=== PATIENT | male | born 1995 | race Caucasian/White ===

== ENCOUNTER 2017-04-04 06:08 | Emergency (ER) | payer SELFPAY ==
[~2017-04-04] VITALS: Ht 170.2 cm; Wt 65.0 kg
[2017-04-04 06:12] VITALS: BP 128/62; PULSE 53; RESP 16; TEMP 97.5; O2SAT 100
[2017-04-04] MEDS ORDERED: BACT400T PO (06:28)
--- NOTE | 2017-04-04 06:35 | PD ---
HPI . Skin lesions Chief Complaint: Skin Problem Time Seen by Provider: 06:23 Travel History International Travel<30 days: No Contact w/Intl Traveler<30days: No Traveled to known affect area: No History of Present Illness HPI Patient presents with about a week history of scattered skin lesions. He believes that the etiology of the lesions is a dirty work environment. 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 He reports that he was seen approximately 2 days ago and placed on Bactrim for the lesions. However, they are not getting any better. His main complaint is pain associated with the lesions. He reports a sharp, stabbing pain which is constant and worsening which is rated as 8/10. He has not been taking anything for the pain. He reports no exacerbating or relieving factors. He has not had any fever or any other systemic symptoms. PFSH Past Medical History ADHD: No Autoimmune Disease: No Anxiety: No Depression: No Cancer: No Cardiovascular Problems: No Developmental Delay: No Diabetes: No Diminished Hearing: No Gastrointestinal Disorders: No Glaucoma: No Genitourinary: No Hepatitis: No Hiatal Hernia: No Hypertension: No Musculoskeletal: No Neurologic: No Psychiatric: Yes (ODD) Respiratory: No Immunizations Current: Yes Migraines: No Seizures: No Thyroid Disease: No Ulcer: No Tetanus Vaccination: Unknown Influenza Vaccination: No Past Surgical History Pacemaker: No Other Surgery: Yes Social History Alcohol Use: No (OCCASSIONALLY) Tobacco Use: Yes (1PPD ) Substance Use: No Allergies-Medications (Allergen,Severity, Reaction): Coded Allergies: Animal Dander (Verified Allergy, Intermediate, 04/04/17) Uncoded Allergies: cats and dogs (Allergy, Severe, Sneezing, 07/19/13) Reported Meds & Prescriptions Reported Meds & Active Scripts Active Reported Bactrim (Sulfamethoxazole-Trimethoprim) 400-80 Mg Tab 1 Tab PO BID Review of Systems Except as stated in HPI: all other systems reviewed are Neg Musculoskeletal: Positive: Pain Skin: Positive Lesions Physical Exam Narrative GENERAL: Awake and alert and in no acute distress. SKIN: Warm and dry. He has a few scattered pustules, mainly on his legs. The worst is on his right posterior thigh. None of them are fluctuant. HEAD: Atraumatic. Normocephalic. EYES: Pupils equal and round. NECK: Trachea midline. CARDIOVASCULAR: Regular rate and rhythm. RESPIRATORY: No accessory muscle use. MUSCULOSKELETAL: No obvious deformities. No edema. NEUROLOGICAL: Awake and alert. No obvious cranial nerve deficits. Motor grossly within normal limits. Normal speech. PSYCHIATRIC: Appropriate mood and affect; insight and judgment normal. Data Data Last Documented VS Vital Signs Date Time Temp Pulse Resp B/P Pulse Ox O2 Delivery O2 Flow Rate FiO2 04/04/17 06:12 97.5 53 16 128/62 100 Room Air MDM Medical Decision Making Medical Screen Exam Complete: Yes Emergency Medical Condition: Yes Differential Diagnosis My differential diagnosis includes but is not limited to localized wound infection, cellulitis, abscess Narrative Course Patient presents complaining with scattered skin lesions which he states are painful. One lesion on his right posterior thigh looks like an early abscess. Other 3 or 4 lesions are just pustules. He has no systemic signs or symptoms. He has been on Bactrim for 2 days. I will add Keflex and Motrin. Diagnosis Primary Impression: Abscess Referrals: [facility] 3 days Patient Instructions: Abscess (ED), General Instructions Med/Other Pt SpecificInfo: Prescription(s) given Scripts Ibuprofen 800 Mg [id number] Mg PO Q8H PRN (Pain/Inflammation) #60 TAB Ref 0 Prov:Salome Renteria MD 04/04/17 Cephalexin (Keflex)500 Mg [id number] Mg PO Q8H #30 CAP Ref 0 Prov:Salome Renteria MD 04/04/17 Disposition: 01 DISCHARGE HOME Condition: Stable Salome Renteria MD Apr 04, 2017 06:35
[2017-04-04] MEDS ORDERED: IBUP800T23 PO (06:41)
[2017-04-04] MEDS ORDERED: CEPH-460 PO (06:41)
== END 2017-04-04 06:46 | disposition home or self-care (01) ==
LOC: NEPE 06:08
DX: L02.415 Cutaneous abscess of right lower limb (principal); F17.210 Nicotine dependence, cigarettes, uncomplicated
CPT/HCPCS: 99283

== ENCOUNTER 2017-04-05 23:49 | Emergency (ER) | payer SELFPAY ==
[~2017-04-05] VITALS: Ht 180.3 cm; Wt 64.0 kg
[~2017-04-05 23:49] MED LIST: BACT400T PO; CEPH-460 PO; IBUP800T23 PO
[2017-04-05 23:51] VITALS: BP 111/62; PULSE 52; RESP 16; TEMP 98.5; O2SAT 100
[2017-04-06] MEDS ORDERED: LIDOCAINE HCL 1% 50 ML VIAL INFIL ONE (00:15)
--- NOTE | 2017-04-06 00:32 | PD ---
HPI . Skin lesions Chief Complaint: Skin Problem Time Seen by Provider: 00:07 Travel History International Travel<30 days: No Contact w/Intl Traveler<30days: No Traveled to known affect area: No History of Present Illness HPI Patient presents complaining with continued and worsening skin lesions. He has one on the left knee and another on the posterior thigh just proximal to the knee. He was seen here last night for same. He was seen at urgent care 3 days ago for same. He was prescribed Bactrim at urgent care and Keflex here last night. He reports that he has been compliant with his antibiotics. Despite this, his symptoms are getting worse rather than better. His pain is continuous , throbbing and rated 9/10. He has no associated fever or any other systemic complaints. PFSH Past Medical History ADHD: No Autoimmune Disease: No Anxiety: No Depression: No Cancer: No Cardiovascular Problems: No Developmental Delay: No Diabetes: No Diminished Hearing: No Gastrointestinal Disorders: No Glaucoma: No Genitourinary: No Hepatitis: No Hiatal Hernia: No Hypertension: No Musculoskeletal: No Neurologic: No Psychiatric: Yes (ODD) Respiratory: No Immunizations Current: Yes Migraines: No Seizures: No Thyroid Disease: No Ulcer: No Tetanus Vaccination: Unknown Influenza Vaccination: No Past Surgical History Pacemaker: No Other Surgery: Yes Social History Alcohol Use: No (OCCASSIONALLY) Tobacco Use: Yes (1PPD ) Substance Use: No Allergies-Medications (Allergen,Severity, Reaction): Coded Allergies: Animal Dander (Verified Allergy, Intermediate, 04/05/17) Uncoded Allergies: cats and dogs (Allergy, Severe, Sneezing, 07/19/13) Reported Meds & Prescriptions Reported Meds & Active Scripts Active Ibuprofen 800 Mg Tab 800 Mg PO Q8H PRN Keflex (Cephalexin) 500 Mg Cap 500 Mg PO Q8H Reported Bactrim (Sulfamethoxazole-Trimethoprim) 400-80 Mg Tab 1 Tab PO BID Review of Systems Except as stated in HPI: all other systems reviewed are Neg General / Constitutional: No: Fever, Chills Skin: Positive Lesions Physical Exam Narrative GENERAL: Awake and alert and in no acute distress. SKIN: Warm and dry. He has an area on the right posterior thigh about the size of a quarter which is erythematous and indurated. There is possibly a small amount of fluctuance associated with it. He has another lesion on the left knee which appears to be a very superficial pustule. HEAD: Atraumatic. Normocephalic. EYES: Pupils equal and round. NECK: Trachea midline. CARDIOVASCULAR: Regular rate and rhythm. RESPIRATORY: No accessory muscle use. MUSCULOSKELETAL: No obvious deformities. No edema. NEUROLOGICAL: Awake and alert. No obvious cranial nerve deficits. Motor grossly within normal limits. Normal speech. PSYCHIATRIC: Appropriate mood and affect; insight and judgment normal. Data Data Last Documented VS Vital Signs Date Time Temp Pulse Resp B/P Pulse Ox O2 Delivery O2 Flow Rate FiO2 04/05/17 23:51 98.5 52 16 111/62 100 Room Air Orders Wound Culture And Gram Stain (04/06/17 00:11) Lidocaine 1% Inj (50 Ml) (Xylocaine 1% I (04/06/17 00:15) MDM Medical Decision Making Medical Screen Exam Complete: Yes Emergency Medical Condition: Yes Medical Record Reviewed: Yes (records were reviewed. He was here last night for same. He was prescribed Keflex and Motrin. He is already on Bactrim.) Differential Diagnosis My differential diagnosis includes but is not limited to localized wound infection, cellulitis, abscess Narrative Course Patient presents with worsening skin lesions. I have asked Lidia Boo NP to I &D and culture the lesions. Diagnosis Primary Impression: Abscess Disposition: DISCHARGE HOME Condition: Stable Salome Renteria MD Apr 06, 2017 00:32
--- NOTE | 2017-04-06 00:42 | PD ---
Physical Exam Date Seen by Provider: Apr 06, 2017 Time Seen by Provider: 00:40 Narrative For full history and physical examination please see previous provider's note. I was asked to perform incision and drainages to the left anterior knee and the right lateral thigh Data Data Last Documented VS Vital Signs Date Time Temp Pulse Resp B/P Pulse Ox O2 Delivery O2 Flow Rate FiO2 04/05/17 23:51 98.5 52 16 111/62 100 Room Air Orders Wound Culture And Gram Stain (04/06/17 00:11) Lidocaine 1% Inj (50 Ml) (Xylocaine 1% I (04/06/17 00:15) [facility] Medical Record Reviewed: Yes Supervised Visit with ESTELA: Yes Procedures Procedure Narrative After the risks and benefits were discussed the following procedure was performed: Left anterior knee INCISION AND DRAINAGE OF ABSCESS: The area was prepped and was sterilely draped. A subcutaneous wheal of 1 % Xylocaine with a total number 1 mL was used to anesthetize the area. The area was properly anesthetized. A number 11 scalpel was used to make a 0.5-cm incision across the area of the abscess. Cultures were obtained. The abscess was drained an irrigated with normal saline. Packing was not utilized due to the superficial nature of the abscess. After the risks and benefits were discussed the following procedure was performed: Right lateral thigh INCISION AND DRAINAGE OF ABSCESS: The area was prepped and was sterilely draped. A subcutaneous wheal of 1 % Xylocaine with a total number to mL was used to anesthetize the area. The area was properly anesthetized. A number 11 scalpel was used to make a 1-cm incision across the area of the abscess. The abscess was drained an irrigated with normal saline. Packing was not utilized due to the superficial nature of the abscess. Diagnosis Primary Impression: Abscess Disposition: 01 DISCHARGE HOME Condition: Stable Latrice Acostamarlyn VALENZUELA Apr 06, 2017 00:42
== END 2017-04-06 01:00 | disposition home or self-care (01) ==
LOC: NEPC 23:49
DX: L02.416 Cutaneous abscess of left lower limb (principal); B95.62 Methicillin resistant Staphylococcus aureus infection as the cause of diseases classified elsewhere; F17.210 Nicotine dependence, cigarettes, uncomplicated
CPT/HCPCS: 10061; 86403; 87070; 87186